=== PATIENT | female | born 1995 | race Caucasian/White ===

== ENCOUNTER 2017-11-24 18:50 | Emergency (ER) | payer OTHER ==
[~2017-11-24] VITALS: Ht 175.3 cm; Wt 65.8 kg
--- NOTE | ~2017-11-24 | EKG ---
[address] [address] ELECTROCARDIOGRAM REPORT Name: RULA MALCOLM Room #: DEP ROSELYN Aguilar#: [id number] Admission: 11/24/17 Attend Phys: Discharge: 11/24/17 Date of : [birth year] Report #: [id number] THIS REPORT FOR: //name// [facility] ED Test Date: 2017-11-24 Test Time: 19:21:46 Pat Name: RULA MALCOLM Department: Room: Gender: F Senior Infrastructure Architect: MICHAEL : 1995 Requested By: Milind Espinosa Order Number: [id number] MD: Gilberto Orta Measurements Intervals [place] Rate: 58 P: 67 DE: 188 QRS: 86 QRSD: 101 T: 29 QT: 422 QTc: 415 Interpretive Statements Sinus rhythm No previous ECG available for comparison Electronically Signed On 11-26-2017 17:33:12 CDT by Gilberto Orta [email or web address] <ELECTRONICALLY SIGNED> By: Gilberto Orta MD 11/26/17 1733 1921 20 Gilberto Orta MD /ИРИНА
[2017-11-24] MEDS ORDERED: LEXAPRO 10 MG T10 M2 PO (19:17)
[2017-11-24 19:49] LABS: HEMOGLOBIN 13.8 gm/dL (12.0-15.0); MCH 31.1 pg (26.0-34.0); MCHC 34.5 g/dL (28.0-37.0); MCV 90.2 fL (80.0-100.0); RBC 4.43 mil/uL (4.20-5.00); RDW 12.7 % (10.5-14.5); WBC 8.5 thou/uL (4.0-11.0)
[2017-11-24 19:57] LABS: CALCIUM 9.4 mg/dL (8.5-10.1); CREATININE 0.8 mg/dL (0.6-1.0); POTASSIUM 3.1 mmol/L (3.5-5.1)
[2017-11-24 20:03] LABS: ALBUMIN 4.1 g/dL (3.4-5.0); TOTAL BILIRUBIN 0.7 mg/dL (<0.1-1.0); TOTAL PROTEIN 7.5 g/dL (6.4-8.2)
[2017-11-24 21:24] VITALS: BP 110/67
== END 2017-11-24 21:20 | disposition home or self-care (01) ==
LOC: ER 18:50
PROVIDERS: Emergency Medicine
DX: R00.2 Palpitations (principal)